=== PATIENT | female | born 1995 | race Caucasian/White ===

== ENCOUNTER 2017-08-28 22:03 | Emergency (ER) | payer OTHER ==
--- NOTE | 2017-08-28 22:50 | ER Document Report ---
ED General - General TRAVEL OUTSIDE OF THE [place] IN LAST 30 DAYS: No <KEVIN EASON - Last Filed: 08/29/17 06:38> <MARIZOL REYES - Last Filed: 08/29/17 18:32> - General Chief Complaint: Overdose Stated Complaint: POSSIBLE OVERDOSE Time Seen by Provider: 08/28/17 22:28 Notes: Patient is a 22-year-old female presents with complaint of suicide attempt. Patient is in [employer] and says that there is been some problems with her command and this is made her depressed denies when she tried herself. Patient denies return herself in the past. Patient is on medication such as propranolol , bupropion, and trazodone. She says she took several trazodone pills tonight to try to hurt herself. Per the EMS report she took 1550 mg tablets. Patient currently says she just feels sleepy. Paramedics did give her charcoal. She did this approximately 25 minutes prior to paramedics arrival. Patient says she just has mild nausea but otherwise feels okay. She has no other complaints at this time. Denies taking any other medications. She denies doing anything else to try to hurt herself. (KEVIN EASON) - Related Data Allergies/Adverse Reactions: fluoxetine [From Prozac] Allergy (Verified 08/28/17 23:03) Past Medical History - Social History Smoking Status: Unknown if Ever Smoked Frequency of alcohol use: None Drug Abuse: None Family History: Reviewed & Not Pertinent <KEVIN EASON - Last Filed: 08/29/17 06:38> Review of Systems <KEVIN EASON - Last Filed: 08/29/17 06:38> <MARIZOL REYES - Last Filed: 08/29/17 18:32> - Review of Systems Notes: My Normal Review Basic REVIEW OF SYSTEMS: CONSTITUTIONAL : Denies fever, chills, or sweats. Denies recent illness. EENT: Denies eye, ear, throat, or mouth pain or symptoms. Denies nasal or sinus congestion. CARDIOVASCULAR: Denies chest pain. RESPIRATORY: Denies cough, cold, or chest congestion. Denies shortness of breath, difficulty breathing, or wheezing. GASTROINTESTINAL: Denies abdominal pain. Some nausea. MUSCULOSKELETAL: Denies neck or back pain or joint pain or swelling. SKIN: Denies rash or skin lesions. NEUROLOGICAL: Denies altered mental status or loss of consciousness. Denies headache. Denies weakness or paralysis or loss of use of either side. Denies problems with gait or speech. Denies sensory or motor loss. PSYCHIATRIC: Suicidal thoughts. ALL OTHER SYSTEMS REVIEWED AND NEGATIVE. (KEVIN EASON) Physical Exam <KEVIN EASON - Last Filed: 08/29/17 06:38> <MARIZOL REYES - Last Filed: 08/29/17 18:32> - Vital signs Vitals: Temp Pulse Resp BP Pulse Ox 98.0 F 88 16 115/62 100 08/28/17 22:23 08/28/17 22:23 08/28/17 22:23 08/28/17 22:23 08/28/17 22:23 - Notes Notes: General Appearance: Well nourished, alert, cooperative, no acute distress, no obvious discomfort. Breast affect. Vitals: reviewed, See vital signs table. Head: no swelling or tenderness to the head Eyes: PERRL, EOMI, Conjuctiva clear Mouth: No decreasd moisture Lungs: No wheezing, No rales, No rhonci, No accessory muscle use, good air exchange bilaterally. Heart: Normal rate, Regular rythm, No murmur, no rub Abdomen: Normal BS, soft, No rigidity, No abdominal tenderness, No guarding, no rebound, no abdominal masses, no organomegaly Extremities: strength 5/5 in all extremities, good pulses in all extremities, no swelling or tenderness in the extremities, no edema. Skin: warm, dry, appropriate color, no rash Neuro: speech clear, oriented x 3, normal affect, responds appropriately to questions. (KEVIN EASON) Course - Laboratory Result Diagrams: 08/28/17 23:35 08/28/17 23:35 <KEVIN EASON - Last Filed: 08/29/17 06:38> - Laboratory Result Diagrams: 08/28/17 23:35 08/28/17 23:35 <MARIZOL REYES - Last Filed: 08/29/17 18:32> - Re-evaluation Re-evalutation: 08/29/17 03:32 On reevaluation the patient is sleeping but easily arousable. When I wake up and ask her how she is feeling she says "to feel well". She has no further complaints or concerns at this time. 08/29/17 06:38 Patient is arousable. She is not exceedingly somnolent. She is neurologically appropriate. She did not have any adverse outcomes from her trazodone overdose. She is medically stable for psychiatric evaluation and placement. Dictation of this chart was performed using voice recognition software; therefore, there may be some unintended grammatical errors. (KEVIN EASON) 08/29/17 10:07 Patient was evaluated this morning. Patient is awake alert patient does admit to taking extra trazodone last night. Patient otherwise has stable vital signs physical examination is otherwise unremarkable. Patient was able to tolerate her breakfast this morning. Her mental health team has been discussion with [facility] is that the patient is [employer]. Patient has been accepted to their facility by Dr. Salazar. Requesting EMS transfer due to possible elopement risk. At this time patient is not requiring any supportive therapy therefore we will transfer the patient by BLS. 08/29/17 10:18 08/29/17 12:44 Patient IVC paperwork from earlier this morning was not process. Patient will currently have IVC paperwork process otherwise patient has no medical therapy ongoing currently waiting on psych will be transported to the [facility] by local law enforcement. 08/29/17 18:31 Patient was finally discharged to [facility] by her command (MARIZOL REYES ) - Vital Signs Vital signs: Temp Pulse Resp BP Pulse Ox 98.8 F 88 18 114/59 L 98 08/29/17 07:00 08/28/17 22:23 08/29/17 11:01 08/29/17 11:00 08/29/17 11:01 - Laboratory Laboratory results interpreted by me: 08/28/17 08/28/17 22:36 23:35 Glucose 111 H Ur Leukocyte Esterase SMALL H Salicylates < 1.0 L Acetaminophen < 10 L - EKG Interpretation by Me Additional EKG results interpreted by me: 08/28/17 23:14 EKG is reviewed and interpreted by me. EKG shows normal sinus rhythm with a rate of [address] segment elevation or depression. No ischemic T-wave inversions. ND interval, QRS duration, QTc intervals are within normal range. No old EKG available for comparison. (KEVIN EASON) Discharge <KEVIN EASON - Last Filed: 08/29/17 06:38> <MARIZOL REYES - Last Filed: 08/29/17 18:32> - Discharge Clinical Impression: Intentional trazodone overdose Condition: Good Disposition: [facility] Referrals: CHRYSTAL MENA DO [Primary Care Provider] - Follow up as needed
[2017-08-28 23:37] LABS: APPEARANCE,URINE SLIGHTLY-CLOUDY; BILIRUBIN,URINE NEGATIVE (NEGATIVE); GLUCOSE, URINE NEGATIVE (NEGATIVE); KETONES,URINE NEGATIVE (NEGATIVE); LEUKOCYTE ESTERASE,URINE SMALL (NEGATIVE); NITRITE,URINE NEGATIVE (NEGATIVE); PROTEIN,URINE NEGATIVE (NEGATIVE); URINE SPECIFIC GRAVITY 1.013; UROBILINOGEN,URINE NEGATIVE mg/dL (<2.0)
[2017-08-28 23:45] LABS: BACTERIA,URINE 2+ /HPF
[2017-08-28 23:53] LABS: ABSOLUTE LYMPHOCYTES (AUTO) 1.6 10^3/uL (0.5-4.7); ABSOLUTE MONOCYTES (AUTO) 0.5 10^3/uL (0.1-1.4); ABSOLUTE NEUT (AUTO) 6.5 10^3/uL (1.7-8.2); BASOPHILS % (AUTO) 0.3 % (0-2); EOSINOPHILS % (AUTO) 0.5 % (0-6); HEMATOCRIT 38.5 % (36.0-47.0); HEMOGLOBIN 13.2 g/dL (12.0-15.5); HGB HCT DIFFERENCE 1.1; LYMPHOCYTES % (AUTO) 18.3 % (13-45); MEAN CORPUSCULAR HEMOGLOBIN 29.6 pg (27.0-33.4); MEAN CORPUSCULAR HGB CONC 34.2 g/dL (32.0-36.0); MEAN CORPUSCULAR VOLUME 87 fl (80-97); MONOCYTES % (AUTO) 6.3 % (3-13); RED BLOOD COUNT 4.46 10^6/uL (3.72-5.28); SEGMENTED NEUTROPHILS % (AUTO) 74.6 % (42-78); WHITE BLOOD COUNT 8.7 10^3/uL (4.0-10.5)
[2017-08-28 23:57] LABS: URINE BARBITURATES SCREEN NEGATIVE; URINE METHADONE SCREEN NEGATIVE; URINE OPIATES LOW NEGATIVE; URINE PHENCYCLIDINE SCREEN NEGATIVE
[2017-08-29 00:04] LABS: ALANINE AMINOTRANSFERASE 36 U/L (9-52); ALBUMIN 4.5 g/dL (3.5-5.0); ALKALINE PHOSPHATASE 46 U/L (38-126); ANION GAP 13 (5-19); ASPARTATE AMINO TRANSFERASE 22 U/L (14-36); BILIRUBIN,DIRECT 0.4 mg/dL (0.0-0.4); BILIRUBIN,TOTAL 0.5 mg/dL (0.2-1.3); BLOOD UREA NITROGEN 10 mg/dL (7-20); CALCIUM 9.6 mg/dL (8.4-10.2); CARBON DIOXIDE 24 mmol/L (22-30); CHLORIDE 105 mmol/L (98-107); CREATININE RESULT 0.72 mg/dL (0.52-1.25); GLUCOSE 111 mg/dL (75-110); POTASSIUM 4.2 mmol/L (3.6-5.0); SODIUM 141.6 mmol/L (137-145); TOTAL PROTEIN 7.1 g/dL (6.3-8.2)
[2017-08-29 00:11] LABS: ALCOHOL < 10 mg/dL (NONE DETECTED)
--- NOTE | 2017-08-29 06:20 | EKG REPORT ---
SEVERITY:- OTHERWISE NORMAL ECG - SINUS RHYTHM BORDERLINE LEFT AXIS DEVIATION : Confirmed by: Leonidas Stevenson 29-Aug-2017 06:20:19
[2017-08-29 11:43] VITALS: BP 114/59
--- NOTE | 2017-08-29 23:01 | PSYCHOLOGICAL NOTE ---
Psych Note - Psych Note Psych Note: Patient is a 22 year old female who presented to the ED late last evening via EMS for an intentional OD of fifteen 50MG Trazodone reportedly 25 minutes prior to EMS arrival to her home. EMS administered Charcoal. She informed medical staff she has problems with her command, is depressed over it, and was trying to hurt herself. Overnight doctor completed IVC paperwork. Patient denied current SI and stated she was glad she was alive. 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 Patient was alert and oriented to person, place, time and situation. Mood was depressed with congruent affect. She denied current SI and stated she was glad she was alive. She denied HI. She did not appear to be responding to internal stimuli AEB fair eye contact and ability to carry on dialogue conversation. Thought processes were linear. Conversational speech was WNL for rate, tone and prosody. Intellectual abilities are estimated to be average. Insight, judgment and impulse control were poor AEB decision to deal with work problem/stress by overdosing. Patient gave verbal consent to contact her , Bryan ([phone]), in order to obtain her Staff , Adelfo Johnsons, number. She stated from her command this was who she trusted. informed this clinician he was on his way to [facility] and ETA would be 1300. provided contact number for the Staff Sergeant ([phone] cell, shop). He stated he has reported to higher command officials and would be willing to provide transport for patient to get to [facility]. Contacted [facility] ([phone]) and coordinated care with [place]. Faxed ([phone]) referral packet. Diagnosis: V62.29 (Z56.9) Other Problem Related to Employment 311 (F31.9) Unspecified Depressive Disorder Impression/Plan: Recommendation to move forward with active duty process which is typically patient stays voluntary status, Command transports patient from [facility] ED to [facility], and [facility] coordinates with [facility] doctor via [facility] for referral. This transfer was difficult as the accepting doctor (Dr. Mead) requested patient be transported via ambulance which was not available until 1999. The concern was that patient would be sitting at [facility] ED all day without any significant treatment. Coordinated between [facility] as well as other medical staff and [facility] continued which resulted in moving forward with the IVC paperwork in an attempt to get patient to [facility] for treatment sooner. Just before arrived to [facility] for transfer [facility] called saying they would send two of their representatives over for voluntary transfer. Since almost to [facility] this was declined. arrived a received notification he could not transport to [facility]. Again coordinated with Transfer Center who said they could send the two Corporals over for voluntary transfer so IVC rescinded. Consulted with Dr. Win and the ED Physician during all of this.
== END 2017-08-29 15:14 ==
LOC: ER 22:03
DX: T43.212A Poisoning by selective serotonin and norepinephrine reuptake inhibitors, intentional self-harm, initial encounter (principal); F32.9 Major depressive disorder, single episode, unspecified; R11.0 Nausea; Z56.9 Unspecified problems related to employment
CPT/HCPCS: 36415; 80053; 80307; 81001; 84703; 85025; 93005; 93010; 99285